=== PATIENT | female | born 1995 | race American Indian/Alaskan Native ===

== ENCOUNTER 2019-12-19 16:44 | Observation (INO) | payer MEDICAID ==
[2019-12-19 17:49] LABS: Bacteria,Urine 4+ /HPF (Negative); Bilirubin,Urine NEG (Negative); Blood,Urine NEG (Negative); Color,Urine Yellow (Yellow); Mucus,Urine 1+ /HPF; Sperm,Urine 1+ /HPF (NP); Urobilinogen,Urine < 2.0 mg/dL (<2.0)
[2019-12-19 17:58] LABS: WBC,Urine > 182.0 /HPF (0.0-6.0)
[2019-12-19] MEDS ORDERED: LACTATED RINGERS 1,000 ML IV SCH (18:00)
[2019-12-19 19:29] LABS: Amphetamine Screen,Urine PRESUMPTIVE NEGATIVE; Benzodiazepines Screen,Urine PRESUMPTIVE NEGATIVE; Cannabinoid Screen,Urine PRESUMPTIVE NEGATIVE; Cocaine Screen,Urine PRESUMPTIVE NEGATIVE; Methadone Screen,Urine PRESUMPTIVE NEGATIVE; Opiate Screen,Urine PRESUMPTIVE NEGATIVE
--- NOTE | 2019-12-19 20:59 | Consultation ---
History of Present Illness Consult date: 12/19/19 History of present illness: 24 y/o today at 36 weeks of , patient of Dr. Sharma at [place], was brought to OB Triage Unit by ambulance due to sudden onset of altered mental state and slurred speech beginning at about 4:30 PM today. Patient has no obstetrical complaints. Normal heart of 140's. Reassuring tracing. 2 CTXs in last 40 minutes. PH: Hx of DVT---currently on Heparin Pt unable to answer questions regarding what year it is, where she is, etc. IMP: Possible CVA PLAN: To ER for evaluation per advise of Hospitalist on-call. Past History - Obstetrical History : 3 Medications and Allergies Allergies Allergy/AdvReac Type Severity Reaction Status Date / Time No Known Allergies Allergy Verified 12/19/19 17:22 Active Meds: Active Medications Lactated Ringer's (Lactated Ringers) 1,000 mls @ 125 mls/hr IV DIRECT MARIAELENA - Vital Signs Vital signs: Vital Signs Pulse Pulse Ox 104 H 100 12/19/19 16:48 12/19/19 16:48 Temp Pulse Resp BP Pulse Ox 97.8 F 114 H 32 H 116/63 99 12/19/19 17:51 12/19/19 20:23 12/19/19 17:51 12/19/19 20:14 12/19/19 20:23 Results Abnormal lab results 12/19/19 Range/Units Unknown Urine WBC (Auto) > 182.0 H (0.0-6.0) /HPF All other labs normal.
--- NOTE | 2019-12-19 21:10 | Emergency Department Report ---
HPI - General Chief Complaint: Altered Mental Status PUI?: No Time Seen by Provider: 12/19/19 20:56 - HPI HPI: This is a 24-year-old -English female, who is currently 36 weeks , who presents to the emergency department from labor and delivery with some slurred speech, headache and some questionable strokelike symptoms. Patient was seen by the SENIOR EDITOR and cleared. Patient complains of a headache to the forehead region that is been going on since this afternoon. The patient significant other at said that the patient began having some slurred speech and confusion around 5 PM. At the time of my examination the patient still complains of a headache and has some slow response to questions asked but otherwise does not have any slurred speech and is oriented to person, place, time. She complains of some bilateral arm numbness or decreased sensation. She denies any facial droop, extremity weakness. Patient has been taking Lovenox regularly secondary to history of previous DVTs. ED Past Medical Hx - Past Medical History Previous Medical History?: Yes Hx Deep Vein Thrombosis: Yes (bilateral lower extremities) - Surgical History Past Surgical History?: No ED Review of Systems ROS: Stated complaint: ABD PAIN Other details as noted in HPI Comment: All other systems reviewed and negative Constitutional: weakness. denies: chills Eyes: denies: eye pain, vision change ENT: denies: ear pain, throat pain Respiratory: denies: cough, shortness of breath Cardiovascular: denies: chest pain, palpitations Gastrointestinal: denies: abdominal pain, vomiting Genitourinary: denies: dysuria, discharge Musculoskeletal: denies: back pain, arthralgia Skin: denies: rash, lesions Neurological: headache, numbness, confusion Physical Exam - Physical Exam Vital Signs: Vital Signs 12/19/19 12/19/19 12/19/19 16:48 16:53 16:58 Temperature Pulse Rate 104 H 100 H 109 H Respiratory Rate Blood Pressure Blood Pressure [Right] O2 Sat by Pulse 100 100 100 Oximetry 12/19/19 12/19/19 12/19/19 16:59 17:03 17:08 Temperature Pulse Rate 114 H 123 H 119 H Respiratory Rate Blood Pressure 107/62 Blood Pressure [Right] O2 Sat by Pulse 100 98 Oximetry 12/19/19 12/19/19 12/19/19 17:13 17:14 17:18 Temperature Pulse Rate 121 H 117 H 123 H Respiratory Rate Blood Pressure 113/70 Blood Pressure [Right] O2 Sat by Pulse 100 100 Oximetry 12/19/19 12/19/19 12/19/19 17:23 17:28 17:31 Temperature Pulse Rate 113 H 111 H 114 H Respiratory Rate Blood Pressure 128/68 Blood Pressure [Right] O2 Sat by Pulse 100 100 86 Oximetry 12/19/19 12/19/19 12/19/19 17:33 17:34 17:38 Temperature Pulse Rate 111 H 111 H 120 H Respiratory Rate Blood Pressure 121/70 Blood Pressure [Right] O2 Sat by Pulse 100 98 Oximetry 12/19/19 12/19/19 12/19/19 17:43 17:45 17:48 Temperature Pulse Rate 128 H 108 H 116 H Respiratory Rate Blood Pressure 121/71 Blood Pressure [Right] O2 Sat by Pulse 100 99 Oximetry 12/19/19 12/19/19 12/19/19 17:51 17:53 17:58 Temperature 97.8 F Pulse Rate 106 H 113 H 119 H Respiratory 32 H Rate Blood Pressure Blood Pressure 115/59 [Right] O2 Sat by Pulse 99 99 98 Oximetry 12/19/19 12/19/19 12/19/19 18:01 18:02 18:03 Temperature Pulse Rate 107 H 108 H 104 H Respiratory Rate Blood Pressure 130/70 Blood Pressure [Right] O2 Sat by Pulse 94 93 Oximetry 12/19/19 12/19/19 12/19/19 18:08 18:12 18:13 Temperature Pulse Rate 103 H 106 H 106 H Respiratory Rate Blood Pressure Blood Pressure [Right] O2 Sat by Pulse 91 93 94 Oximetry 12/19/19 12/19/19 12/19/19 18:14 18:18 18:23 Temperature Pulse Rate 111 H 102 H 119 H Respiratory Rate Blood Pressure 126/69 Blood Pressure [Right] O2 Sat by Pulse 98 100 Oximetry 12/19/19 12/19/19 12/19/19 18:28 18:29 18:33 Temperature Pulse Rate 126 H 107 H 116 H Respiratory Rate Blood Pressure 124/65 Blood Pressure [Right] O2 Sat by Pulse 100 99 Oximetry 12/19/19 12/19/19 12/19/19 18:38 18:43 18:46 Temperature Pulse Rate 112 H 122 H 75 Respiratory Rate Blood Pressure 150/110 Blood Pressure [Right] O2 Sat by Pulse 100 88 Oximetry 12/19/19 12/19/19 12/19/19 18:48 18:53 18:58 Temperature Pulse Rate 123 H 106 H 109 H Respiratory Rate Blood Pressure Blood Pressure [Right] O2 Sat by Pulse 99 100 100 Oximetry 12/19/19 12/19/19 12/19/19 19:00 19:03 19:08 Temperature Pulse Rate 100 H 105 H 102 H Respiratory Rate Blood Pressure 120/71 Blood Pressure [Right] O2 Sat by Pulse 99 99 Oximetry 12/19/19 12/19/19 12/19/19 19:13 19:16 19:18 Temperature Pulse Rate 111 H 116 H 111 H Respiratory Rate Blood Pressure 112/70 Blood Pressure [Right] O2 Sat by Pulse 99 99 Oximetry 12/19/19 12/19/19 12/19/19 19:23 19:28 19:29 Temperature Pulse Rate 117 H 110 H 115 H Respiratory Rate Blood Pressure 106/66 Blood Pressure [Right] O2 Sat by Pulse 98 98 Oximetry 12/19/19 12/19/19 12/19/19 19:33 19:38 19:43 Temperature Pulse Rate 111 H 108 H 105 H Respiratory Rate Blood Pressure Blood Pressure [Right] O2 Sat by Pulse 98 100 100 Oximetry 12/19/19 12/19/19 12/19/19 19:45 19:48 19:53 Temperature Pulse Rate 107 H 115 H 121 H Respiratory Rate Blood Pressure 97/53 Blood Pressure [Right] O2 Sat by Pulse 99 98 Oximetry 12/19/19 12/19/19 12/19/19 19:58 20:01 20:03 Temperature Pulse Rate 118 H 127 H 118 H Respiratory Rate Blood Pressure 116/68 Blood Pressure [Right] O2 Sat by Pulse 99 99 Oximetry 12/19/19 12/19/19 12/19/19 20:08 20:13 20:14 Temperature Pulse Rate 101 H 105 H 104 H Respiratory Rate Blood Pressure 116/63 Blood Pressure [Right] O2 Sat by Pulse 99 99 Oximetry 12/19/19 12/19/19 12/19/19 20:18 20:23 20:57 Temperature 100.7 F H Pulse Rate 111 H 114 H 107 H Respiratory 16 Rate Blood Pressure Blood Pressure 108/64 [Right] O2 Sat by Pulse 98 99 99 Oximetry Physical Exam: GENERAL: The patient is well-developed well-nourished. HENT: Normocephalic. Atraumatic. Patient has moist mucous membranes. EYES: Extraocular motions are intact. Pupils equal reactive to light bilaterally. No nystagmus. NECK: Supple. Trachea is midline. CHEST/LUNGS: Clear to auscultation. There is no respiratory distress noted. HEART/CARDIOVASCULAR: Regular. There is no tachycardia. ABDOMEN: Abdomen is soft, nontender. Patient has normal bowel sounds. SKIN: Skin is warm and dry. NEURO: The patient is awake, alert, and oriented. The patient is cooperative. The patient has no motor or sensory deficits. There is no dysarthria but the patient is slow to respond to questions asked with some mild aphasia. Cranial nerves II through XII grossly intact. No pronator drift or dysmetria. MUSCULOSKELETAL: There is no tenderness or deformity. There is no limitation range of motion. ED Course Vital Signs 12/19/19 12/19/19 12/19/19 16:48 16:53 16:58 Temperature Pulse Rate 104 H 100 H 109 H Respiratory Rate Blood Pressure Blood Pressure [Right] O2 Sat by Pulse 100 100 100 Oximetry 12/19/19 12/19/19 12/19/19 16:59 17:03 17:08 Temperature Pulse Rate 114 H 123 H 119 H Respiratory Rate Blood Pressure 107/62 Blood Pressure [Right] O2 Sat by Pulse 100 98 Oximetry 12/19/19 12/19/19 12/19/19 17:13 17:14 17:18 Temperature Pulse Rate 121 H 117 H 123 H Respiratory Rate Blood Pressure 113/70 Blood Pressure [Right] O2 Sat by Pulse 100 100 Oximetry 12/19/19 12/19/19 12/19/19 17:23 17:28 17:31 Temperature Pulse Rate 113 H 111 H 114 H Respiratory Rate Blood Pressure 128/68 Blood Pressure [Right] O2 Sat by Pulse 100 100 86 Oximetry 12/19/19 12/19/19 12/19/19 17:33 17:34 17:38 Temperature Pulse Rate 111 H 111 H 120 H Respiratory Rate Blood Pressure 121/70 Blood Pressure [Right] O2 Sat by Pulse 100 98 Oximetry 12/19/19 12/19/19 12/19/19 17:43 17:45 17:48 Temperature Pulse Rate 128 H 108 H 116 H Respiratory Rate Blood Pressure 121/71 Blood Pressure [Right] O2 Sat by Pulse 100 99 Oximetry 12/19/19 12/19/19 12/19/19 17:51 17:53 17:58 Temperature 97.8 F Pulse Rate 106 H 113 H 119 H Respiratory 32 H Rate Blood Pressure Blood Pressure 115/59 [Right] O2 Sat by Pulse 99 99 98 Oximetry 12/19/19 12/19/19 12/19/19 18:01 18:02 18:03 Temperature Pulse Rate 107 H 108 H 104 H Respiratory Rate Blood Pressure 130/70 Blood Pressure [Right] O2 Sat by Pulse 94 93 Oximetry 12/19/19 12/19/19 12/19/19 18:08 18:12 18:13 Temperature Pulse Rate 103 H 106 H 106 H Respiratory Rate Blood Pressure Blood Pressure [Right] O2 Sat by Pulse 91 93 94 Oximetry 12/19/19 12/19/19 12/19/19 18:14 18:18 18:23 Temperature Pulse Rate 111 H 102 H 119 H Respiratory Rate Blood Pressure 126/69 Blood Pressure [Right] O2 Sat by Pulse 98 100 Oximetry 12/19/19 12/19/19 12/19/19 18:28 18:29 18:33 Temperature Pulse Rate 126 H 107 H 116 H Respiratory Rate Blood Pressure 124/65 Blood Pressure [Right] O2 Sat by Pulse 100 99 Oximetry 12/19/19 12/19/19 12/19/19 18:38 18:43 18:46 Temperature Pulse Rate 112 H 122 H 75 Respiratory Rate Blood Pressure 150/110 Blood Pressure [Right] O2 Sat by Pulse 100 88 Oximetry 12/19/19 12/19/19 12/19/19 18:48 18:53 18:58 Temperature Pulse Rate 123 H 106 H 109 H Respiratory Rate Blood Pressure Blood Pressure [Right] O2 Sat by Pulse 99 100 100 Oximetry 12/19/19 12/19/19 12/19/19 19:00 19:03 19:08 Temperature Pulse Rate 100 H 105 H 102 H Respiratory Rate Blood Pressure 120/71 Blood Pressure [Right] O2 Sat by Pulse 99 99 Oximetry 12/19/19 12/19/19 12/19/19 19:13 19:16 19:18 Temperature Pulse Rate 111 H 116 H 111 H Respiratory Rate Blood Pressure 112/70 Blood Pressure [Right] O2 Sat by Pulse 99 99 Oximetry 12/19/19 12/19/1912/18/20 19:23 19:28 19:29 Temperature Pulse Rate 117 H 110 H 115 H Respiratory Rate Blood Pressure 106/66 Blood Pressure [Right] O2 Sat by Pulse 98 98 Oximetry 12/19/19 12/19/19 12/19/19 19:33 19:38 19:43 Temperature Pulse Rate 111 H 108 H 105 H Respiratory Rate Blood Pressure Blood Pressure [Right] O2 Sat by Pulse 98 100 100 Oximetry 12/19/19 12/19/19 12/19/19 19:45 19:48 19:53 Temperature Pulse Rate 107 H 115 H 121 H Respiratory Rate Blood Pressure 97/53 Blood Pressure [Right] O2 Sat by Pulse 99 98 Oximetry 12/19/19 12/19/19 12/19/19 19:58 20:01 20:03 Temperature Pulse Rate 118 H 127 H 118 H Respiratory Rate Blood Pressure 116/68 Blood Pressure [Right] O2 Sat by Pulse 99 99 Oximetry 12/19/19 12/19/19 12/19/19 20:08 20:13 20:14 Temperature Pulse Rate 101 H 105 H 104 H Respiratory Rate Blood Pressure 116/63 Blood Pressure [Right] O2 Sat by Pulse 99 99 Oximetry 12/19/19 12/19/19 12/19/19 20:18 20:23 20:57 Temperature 100.7 F H Pulse Rate 111 H 114 H 107 H Respiratory 16 Rate Blood Pressure Blood Pressure 108/64 [Right] O2 Sat by Pulse 98 99 99 Oximetry - Reevaluation(s) Reevaluation #1: 12/20/19 00:21 Lab Results 12/19/19 12/19/19 12/19/19 Range/Units 21:31 21:31 21:31 WBC 8.9 (4.5-11.0) K/mm3 RBC 3.84 (3.65-5.03) M/mm3 Hgb 10.6 (10.1-14.3) gm/dl Hct 31.9 (30.3-42.9) % MCV 83 (79-97) fl MCH 28 (28-32) pg MCHC 33 (30-34) % RDW 19.2 H (13.2-15.2) % Plt Count 434 (140-440) K/mm3 Lymph % (Auto) 14.5 (13.4-35.0) % [place] % (Auto) 8.6 H (0.0-7.3) % Eos % (Auto) 0.0 (0.0-4.3) % Baso % (Auto) 0.2 (0.0-1.8) % Lymph # 1.3 (1.2-5.4) K/mm3 [place] # 0.8 (0.0-0.8) K/mm3 Eos # 0.0 (0.0-0.4) K/mm3 Baso # 0.0 (0.0-0.1) K/mm3 Seg Neutrophils % 76.7 H (40.0-70.0) % Seg Neutrophils # 6.9 (1.8-7.7) K/mm3 PT 15.0 H (12.2-14.9) Sec. INR 1.16 H (0.87-1.13) APTT 34.1 (24.2-36.6) Sec. Sodium (137-145) mmol/L Potassium (3.6-5.0) mmol/L Chloride (98-107) mmol/L Carbon Dioxide (22-30) mmol/L Anion Gap mmol/L BUN (7-17) mg/dL Creatinine (0.6-1.2) mg/dL Estimated GFR ml/min BUN/Creatinine Ratio % Glucose (65-100) mg/dL Calcium (8.4-10.2) mg/dL Total Bilirubin (0.1-1.2) mg/dL AST (5-40) units/L ALT (7-56) units/L Alkaline Phosphatase (35-129) units/L Total Creatine Kinase 67 (30-135) units/L CK-MB (CK-2) 1.4 (0.0-4.0) ng/mL CK-MB (CK-2) Rel Index 2.0 (0-4) Troponin T < 0.010 (0.00-0.029) ng/mL Total Protein (6.3-8.2) g/dL Albumin (3.9-5) g/dL Albumin/Globulin Ratio % Blood Type Antibody Screen 12/19/19 12/19/19 Range/Units 21:31 21:31 WBC (4.5-11.0) K/mm3 RBC (3.65-5.03) M/mm3 Hgb (10.1-14.3) gm/dl Hct (30.3-42.9) % MCV (79-97) fl MCH (28-32) pg MCHC (30-34) % RDW (13.2-15.2) % Plt Count (140-440) K/mm3 Lymph % (Auto) (13.4-35.0) % [place] % (Auto) (0.0-7.3) % Eos % (Auto) (0.0-4.3) % Baso % (Auto) (0.0-1.8) % Lymph # (1.2-5.4) K/mm3 [place] # (0.0-0.8) K/mm3 Eos # (0.0-0.4) K/mm3 Baso # (0.0-0.1) K/mm3 Seg Neutrophils % (40.0-70.0) % Seg Neutrophils # (1.8-7.7) K/mm3 PT (12.2-14.9) Sec. INR (0.87-1.13) APTT (24.2-36.6) Sec. Sodium 136 L (137-145) mmol/L Potassium 4.4 (3.6-5.0) mmol/L Chloride 103.3 (98-107) mmol/L Carbon Dioxide 17 L (22-30) mmol/L Anion Gap 20 mmol/L BUN 13 (7-17) mg/dL Creatinine 1.1 (0.6-1.2) mg/dL Estimated GFR > 60 ml/min BUN/Creatinine Ratio 12 % Glucose 110 H (65-100) mg/dL Calcium 9.1 (8.4-10.2) mg/dL Total Bilirubin 0.20 (0.1-1.2) mg/dL AST 10 (5-40) units/L ALT 7 (7-56) units/L Alkaline Phosphatase 111 (35-129) units/L Total Creatine Kinase (30-135) units/L CK-MB (CK-2) (0.0-4.0) ng/mL CK-MB (CK-2) Rel Index (0-4) Troponin T (0.00-0.029) ng/mL Total Protein 6.7 (6.3-8.2) g/dL Albumin 2.8 L (3.9-5) g/dL Albumin/Globulin Ratio 0.7 % Blood Type O POSITIVE Antibody Screen Negative - Consultations Consultation #1: 12/19/19 21:17 The patient was seen by the telemedicine neurologist, Dr. Bertrand, who feels the patient is having aphasia and is recommending CT angiography of the head and neck studies. ED Medical Decision Making - Lab Data Result diagrams: 12/19/19 21:31 12/19/19 21:31 - Radiology Data Radiology results: report reviewed CT BRAIN: 12/19/2019 INDICATION / CLINICAL INFORMATION: Stroke symptoms. COMPARISON: None available. FINDINGS: BRAIN/INTRACRANIAL STRUCTURES: Unenhanced CT images of the brain demonstrate no evidence of acute intracranial abnormality. Ventricles and sulci are normal in size and shape. There is no evidence of acute ischemic injury, hemorrhage, or mass. There are no abnormal extra-axial fluid collections. EXTRACRANIAL STRUCTURES: Unremarkable. IMPRESSION: Negative unenhanced CT of the brain. HEAD CT ANGIOGRAM 12/19/2019 HISTORY: CVA FINDINGS: Contrast-enhanced CT angiographic images of the intracranial circulation were obtained. In addition to the axial images, sagittal and coronal reformatted images were obtained. In addition, 3 plane MIP reconstructions were produced. There is no evidence of acute abnormality. Vascular contours at the level of the skull base and [place] are unremarkable. There is a normal appearance to the major dural sinuses and deep venous structures. IMPRESSION: No significant abnormality CTA NECK WITH CONTRAST 12/19/2019 INDICATION / CLINICAL INFORMATION: CVA. COMPARISON: None. TECHNIQUE: Routine CTA of the neck is performed. 3-D/MIP reformats were postprocessed. Percentage stenosis is determined by direct quantitative measurements of diseased internal carotid artery diameter compared with normal distal internal carotid artery reference segments or by criteria similar to NASCET where applicable. All CT scans at this location are performed using CT dose reduction for ALARA by means of automated exposure control. CONTRAST: 100 ml of Isovue 370 FINDINGS: Carotid bifurcations: No evidence of carotid bifurcation stenosis Carotid arteries: No significant abnormality. Cervical vertebral arteries: No significant abnormality. Aortic arch: No significant abnormality. None. IMPRESSION: No significant abnormality. - Medical Decision Making This patient presents to the emergency department with a complaint of some slurred speech earlier in the afternoon and altered mental status. The patient does complain of a headache. She does not have any slurred speech at the time of my initial examination but is very slow to respond to questions asked and had difficulty with the orientation question of where she is. A code stroke was initiated and the patient was seen by the telemedicine neurologist, Dr Bertrand, during her initial ED course as she went to CT scan. CT of the head without contrast was negative for any hemorrhage, large territorial infarct or any other acute process. The neurologist called me and recommended CT angiography studies of the head and neck. The neurologist was aware that the patient is 36 weeks . The risks versus benefits of the studies were discussed with the patient who is in full agreement to have the CT studies completed including the angiography studies, and the patient has signed the permission forms. CT angiography of the head and neck were negative for any large vessel occlusion, thrombus, or any other acute processes. The patient's labs have been mostly unremarkable except for a urinary tract infection for which the patient has been given Rocephin. The patient will be admitted to the hospital for further evaluation and treatment and has been accepted for admission by the hospitalist, Dr. Garcia. Critical Care Time: Yes Critical care time in (mins) excluding proc time.: 35 Critical care attestation.: If time is entered above; I have spent that time in minutes in the direct care of this critically ill patient, excluding procedure time. Critical care time was spent on this patient in doing her initial evaluation, multiple re- evaluations, ordering and interpretation of labs and imaging, discussion with the telemedicine neurologist and hospitalist services, multiple discussions with the patient herself. Critical Care Time: 35 minutes ED Disposition Clinical Impression: Stroke-like symptoms Altered mental status Qualifiers: Altered mental status type: unspecified Qualified Code(s): R41.82 - Altered mental status, unspecified UTI (urinary tract infection) Qualifiers: Urinary tract infection type: acute cystitis Hematuria presence: without hematuria Qualified Code(s): N30.00 - Acute cystitis without hematuria Qualifiers: Weeks of gestation: 36 weeks Qualified Code(s): Z3A.36 - 36 weeks gestation of Disposition: OP ADMIT IP TO THIS HOSP Is pt being admited?: Yes Condition: Serious Time of Disposition: 22:32 - Assessment Assessment Interval: Baseline - Level of Consciousness 1a. Level of Consciousness: alert/keenly responsive - LOC Questions 1b. LOC Questions: answers both correctly - LOC Command 1c. LOC Commands: performs tasks correctly - Best Gaze 2. Best Gaze: normal - Visual 3. Visual: no visual loss - Facial Palsy 4. Facial Palsy: normal symmetrical movement - Motor Arm 5a. Motor Arm Left: no drift 5b. Motor Arm Right: no drift - Motor Leg 6a. Motor Leg Left: no drift 6b. Motor Leg Right: no drift - Limb Ataxia 7. Limb Ataxia: absent - Sensory 8. Sensory: normal - Best Language 9. Best Language: mild/moderate aphasia - Dysarthria 10. Dysarthria: normal - Extinction and Inattention 11. Extinction/Inattention: no abnormality - Scoring Total Score: 1 Stroke Severity: Minor Stroke
--- NOTE | 2019-12-19 21:29 | Cat Scan Report ---
CT BRAIN: 12/19/2019 INDICATION / CLINICAL INFORMATION: Stroke symptoms. COMPARISON: None available. FINDINGS: BRAIN/INTRACRANIAL STRUCTURES: Unenhanced CT images of the brain demonstrate no evidence of acute int racranial abnormality. Ventricles and sulci are normal in size and shape. There is no evidence of acute ischemic injury, hemorrhage, or mass. There are no abnormal extra-axial fluid collections. EXTRACRANIAL STRUCTURES: Unremarkable. IMPRESSION: Negative unenhanced CT of the brain. Findings were discussed with emergency room (Dr. Murillo) physician at 2123h ET All CT scans at this location are performed using dose reduction to ALARA by means of automated expos ure control. Signer Name: Kadeem Mcdaniel MD Signed: 12/19/2019 9:24 PM Workstation Name: [id number]
[2019-12-19 21:44] LABS: Basophils % (Auto) 0.2 % (0.0-1.8); Hematocrit 31.9 % (30.3-42.9); Hemoglobin 10.6 gm/dl (10.1-14.3); Lymphocytes # (Auto) 1.3 K/mm3 (1.2-5.4); Lymphocytes % (Auto) 14.5 % (13.4-35.0); Mean Corpuscular HGB Conc 33 % (30-34); Mean Corpuscular Volume 83 fl (79-97); Monocytes # (Auto) 0.8 K/mm3 (0.0-0.8); Monocytes % (Auto) 8.6 % (0.0-7.3); Platelet Count 434 K/mm3 (140-440); Red Blood Count 3.84 M/mm3 (3.65-5.03); Red Cell Distribution Width 19.2 % (13.2-15.2)
--- NOTE | 2019-12-19 21:51 | Cat Scan Report ---
CTA NECK WITH CONTRAST 12/19/2019 INDICATION / CLINICAL INFORMATION: CVA. COMPARISON: None. TECHNIQUE: Routine CTA of the neck is performed. 3-D/MIP reformats were postprocessed. Percentage st enosis is determined by direct quantitative measurements of diseased internal carotid artery diameter compared with normal distal internal carotid artery reference segments or by criteria similar to [place] CET where applicable. All CT scans at this location are performed using CT dose reduction for ALARA b y means of automated exposure control. CONTRAST: 100 ml of Isovue 370 FINDINGS: Carotid bifurcations: No evidence of carotid bifurcation stenosis Carotid arteries: No significant abnormality. Cervical vertebral arteries: No significant abnormality. Aortic arch: No significant abnormality. None. IMPRESSION: No significant abnormality. Signer Name: Kadeem Mcdaniel MD Signed: 12/19/2019 9:46 PM Workstation Name: [id number]
--- NOTE | 2019-12-19 21:55 | Cat Scan Report ---
HEAD CT ANGIOGRAM 12/19/2019 HISTORY: CVA FINDINGS: Contrast-enhanced CT angiographic images of the intracranial circulation were obtained. In addition to the axial images, sagittal and coronal reformatted images were obtained. In addition, 3 p kristie MIP reconstructions were produced. There is no evidence of acute abnormality. Vascular contours at the level of the skull base and [place] are unremarkable. There is a normal appearance to the major dural sinuses and deep venous structures. IMPRESSION: No significant abnormality All CT scans at this location are performed using dose reduction to ALARA by means of automated expos ure control. Signer Name: Kadeem Mcdaniel MD Signed: 12/19/2019 9:50 PM Workstation Name: [id number]
[2019-12-19 22:00] LABS: INR 1.16 (0.87-1.13)
[2019-12-19 22:01] LABS: Creatine Kinase MB 1.4 ng/mL (0.0-4.0); Partial Thromboplastin Time 34.1 Sec. (24.2-36.6)
[2019-12-19] MEDS ORDERED: cefTRIAXone/NS 1 GM/50 ML 1 GM/50 ML BAG IV ONE ×2 (22:01→22:24)
[2019-12-19 22:02] LABS: Alanine Aminotransferase 7 units/L (7-56); Albumin 2.8 g/dL (3.9-5); BUN/Creatinine Ratio 12; Blood Urea Nitrogen 13 mg/dL (7-17); Calcium 9.1 mg/dL (8.4-10.2); Hemolysis Index 0
[2019-12-19] MEDS ORDERED: ACETAMINOPHEN 325 MG TAB PO ONE (22:03)
[2019-12-19] MEDS ORDERED: ACETAMINOPHEN 325 MG TAB ONE (22:24)
--- NOTE | 2019-12-20 00:27 | Consultation ---
History of Present Illness Consult date: 12/20/19 Reason for Consult: [employer] Medications and Allergies Allergies Allergy/AdvReac Type Severity Reaction Status Date / Time No Known Allergies Allergy Verified 12/19/19 17:22 Active Meds: Active Medications Ceftriaxone Sodium (Rocephin/Ns 1 Gm/50 Ml) 1 gm in 50 mls @ 100 mls/hr IV Q24HR MARIAELENA; Protocol Physical Examination - Vital Signs Vital Signs: Vital Signs Pulse Pulse Ox 104 H 100 12/19/19 16:48 12/19/19 16:48 Results - Laboratory Findings CBC and BMP: 12/19/19 21:31 12/19/19 21:31 Abnormal Lab Findings: Abnormal Labs 12/19/19 12/19/19 12/19/19 21:31 21:31 21:31 RDW 19.2 H [place] % (Auto) 8.6 H Seg Neutrophils % 76.7 H PT 15.0 H INR 1.16 H Sodium 136 L Carbon Dioxide 17 L Glucose 110 H Albumin 2.8 L Urine WBC (Auto) 12/19/19 Unknown RDW [place] % (Auto) Seg Neutrophils % PT INR Sodium Carbon Dioxide Glucose Albumin Urine WBC (Auto) > 182.0 H
--- NOTE | 2019-12-20 05:22 | Ultrasound Report ---
Examination: Ultrasound Obstetrical Limited, 12/20/2019 INDICATION: Evaluate well being. COMPARISON: None FINDINGS: There is a single living intrauterine with the head in the cephalic position. Amniotic flui d index measures 6.3 cm, which is slightly decreased. The heart rate measures 129 bpm. Incidental note is made of mild right-sided hydronephrosis. The utility aircrewman performing the evaluation also tried to evaluate the maternal left kidney but it was not visualized. 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 IMPRESSION: 1. Limited obstetrical ultrasound with details as above. The BOY is slightly decreased. 2. Mild right hydronephrosis. Signer Name: Casie Xavier MD Signed: 12/20/2019 5:18 AM Workstation Name: [id number]
--- NOTE | 2019-12-20 05:23 | Ultrasound Report ---
ULTRASOUND BIOPHYSICAL PROFILE INDICATION / CLINICAL INFORMATION: Evaluate well-being COMPARISON: None FINDINGS: BREATHING MOVEMENT = 2 GROSS BODY MOVEMENT = 2 TONE = 2 QUALITATIVE AMNIOTIC FLUID VOLUME = 2 TOTAL BIOPHYSICAL SCORE = 8/8 AMNIOTIC FLUID INDEX (cm) = 6.3 PRESENTATION: Cephalic. HEART RATE (beats per minute): 129 IMPRESSION: 1. biophysical profile = 8/8 2. BOY is noted to be slightly decreased. Signer Name: Casie Xavier MD Signed: 12/20/2019 5:18 AM Workstation Name: [id number]
--- NOTE | 2019-12-20 06:11 | History and Physical Report ---
History of Present Illness Date of examination: 12/19/19 Date of admission: 12/19/19 22:32 Chief complaint: SPEECH DISTURBANCE AND ALTERED MENTAL STATUS History of present illness: History of presenting illness, patient is a 24-year-old lady, who was brought from the labor and delivery to the emergency room because of difficulty with speech, altered mental status, numbness of both upper extremity and weakness of the right upper extremity. Patient symptoms started some hours prior to presentation to the emergency room, there was history of associated headache but there was no history of fever, shortness of breath, chest pain, or cough Past History Past Medical History: DVT Medications and Allergies Allergies Allergy/AdvReac Type Severity Reaction Status Date / Time No Known Allergies Allergy Verified 12/19/19 17:22 Active Meds: Active Medications Ceftriaxone Sodium (Rocephin/Ns 1 Gm/50 Ml) 1 gm in 50 mls @ 100 mls/hr IV Q24H R MARIAELENA; Protocol Review of Systems Constitutional: weakness, no weight loss, no weight gain, no fever, no chills, no sweats, no night sweats, no anorexia, no fatigue, no malaise Eyes: bilateral: other (NO BILATERAL EYE SYMPTOMS ) Ears, nose, mouth and throat: no ear pain, no ear discharge, no nose pain, no n heidi congestion, no nasal discharge, no sinus pressure, no dysphagia, no hoarseness, no sore throat Breasts: deferred Cardiovascular: no chest pain, no orthopnea, no rapid/irregular heart beat, no syncope, no lightheadedness, no shortness of breath Respiratory: no cough, no excessive sputum, no hemoptysis, no shortness of b reath, no dyspnea on exertion Gastrointestinal: no abdominal pain, no nausea, no vomiting, no diarrhea, no constipation, no hematemesis, no melena, no hematochezia, no heartburn, no jaundice, no dyspepsia/bloating Genitourinary Female: , no pelvic pain, no flank pain, no menorrhagia Menstruation: no currently menstrual, no postmenopausal Rectal: no pain, no itching Musculoskeletal: neck stiffness, neck pain Integumentary: no rash, no pruritis, no redness, no sores, no jaundice, no lesions, no hirsutism Neurological: headaches, change in speech, change in mentation, no head injury, no paralysis, no weakness, no parathesias, no numbness, no tingling, no seizures, no syncope, no convulsions, no confusion, no memory loss Psychiatric: no anxiety, no memory loss, no insomnia, no depression, no anxiety attacks, no confusion Endocrine: no cold intolerance, no heat intolerance, no polydipsia, no polyuria, no nocturia, no thyroid mass, no palpatations Hematologic/Lymphatic: no easy bruising, no easy bleeding Allergic/Immunologic: no persistent infections Exam - Constitutional Vitals: Temp Pulse Resp BP Pulse Ox 98.6 F 97 H 20 103/43 99 12/20/19 03:28 12/20/19 03:28 12/20/19 03:28 12/20/19 03:28 12/20/19 03:28 General appearance: Present: mild distress - EENT Eyes: Present: PERRL, EOM intact ENT: hearing intact, clear oral mucosa, dentition normal - Neck Neck: Present: supple, normal ROM - Respiratory Respiratory effort: normal - Cardiovascular Rhythm: regular Heart Sounds: Present: S1 & S2. Absent: gallop, systolic murmur, diastolic murmur - Extremities Extremities: no ischemia, No edema Peripheral Pulses: within normal limits - Abdominal General gastrointestinal: Present: soft, non-tender, non-distended. Absent: tender, distended, rigid, hepatomegaly, splenomegaly, mass Female genitourinary: Present: deferred - Rectal Rectal Exam: deferred - Integumentary Integumentary: Present: clear, warm, dry - Musculoskeletal Musculoskeletal: strength equal bilaterally - Psychiatric Psychiatric: appropriate mood/affect - Neurologic Neurologic: CNII-XII intact HEART Score - HEART Score Age: < 45 Risk factors: No known risk factors Troponin: Troponin T < 0.010 ng/mL (0.00-0.029) 12/19/19 21:31 Troponin: < normal limit - Critical Actions Critical Actions: 0-3 pts:0.9-1.7%risk of adverse cardiac event.Candidate for discharge Results - Labs CBC & Chem 7: 12/19/19 21:31 12/19/19 21:31 Labs: Laboratory Last Values WBC 8.9 K/mm3 (4.5-11.0) 12/19/19 21:31 RBC 3.84 M/mm3 (3.65-5.03) 12/19/19 21: Hgb 10.6 gm/dl (10.1-14.3) 12/19/19 21: Hct 31.9 % (30.3-42.9) 12/19/19 21: MCV 83 fl (79-97) 12/19/19 21: MCH 28 pg (28-32) 12/19/19 21: MCHC 33 % (30-34) 12/19/19 21: RDW 19.2 % (13.2-15.2) H 12/19/19 21: Plt Count 434 K/mm3 (140-440) 12/19/19 21: Lymph % (Auto) 14.5 % (13.4-35.0) 12/19/19 21: [place] % (Auto) 8.6 % (0.0-7.3) H 12/19/19 21: Eos % (Auto) 0.0 % (0.0-4.3) 12/19/19 21: Baso % (Auto) 0.2 % (0.0-1.8) 12/19/19 21: Lymph # 1.3 K/mm3 (1.2-5.4) 12/19/19 21: [place] # 0.8 K/mm3 (0.0-0.8) 12/19/19 21: Eos # 0.0 K/mm3 (0.0-0.4) 12/19/19 21: Baso # 0.0 K/mm3 (0.0-0.1) 12/19/19 21: Seg Neutrophils % 76.7 % (40.0-70.0) H 12/19/19 21: Seg Neutrophils # 6.9 K/mm3 (1.8-7.7) 12/19/19: PT 15.0 Sec. (12.2-14.9) H 12/19/19 21: INR 1.16 (0.87-1.13) H 12/19/19 21: APTT 34.1 Sec. (24.2-36.6) 12/19/19 21: Sodium 136 mmol/L (137-145) L 12/19/19 21: Potassium 4.4 mmol/L (3.6-5.0) 12/19/19 21: Chloride 103.3 mmol/L (98-107) 12/19/19 21: Carbon Dioxide 17 mmol/L (22-30) L 12/19/19 21: Anion Gap 20 mmol/L 12/19/19 21: BUN 13 mg/dL (7-17) 12/19/19 21: Creatinine 1.1 mg/dL (0.6-1.2) 12/19/19 21: Estimated GFR > 60 ml/min 12/19/19 21: BUN/Creatinine Ratio 12 % 12/19/19 21: Glucose 110 mg/dL (65-100) H 12/19/19 21: Calcium 9.1 mg/dL (8.4-10.2) 12/19/19 21: Total Bilirubin 0.20 mg/dL (0.1-1.2) 12/19/19 21: AST 10 units/L (5-40) 12/19/19 21: ALT 7 units/L (7-56) 12/19/19 21: Alkaline Phosphatase 111 units/L (35-129) 12/19/19 21: Total Creatine Kinase 67 units/L (30-135) 12/19/19 21: CK-MB (CK-2) 1.4 ng/mL (0.0-4.0) 12/19/19 21: CK-MB (CK-2) Rel Index 2.0 (0-4) 12/19/19 21: Troponin T < 0.010 ng/mL (0.00-0.029) 12/19/19 21: Total Protein 6.7 g/dL (6.3-8.2) 12/19/19 21: Albumin 2.8 g/dL (3.9-5) L 12/19/19 21: Albumin/Globulin Ratio 0.7 % 12/19/19 21: Urine Color Yellow (Yellow) 12/19/19 Unknown Urine Turbidity Turbid (Clear) 12/19/19 Unknown Urine pH 6.0 (5.0-7.0) 12/19/19 Unknown Ur Specific [place] 1.015 (1.003-1.030) 12/19/19 Unknown Urine Protein 30 mg/dl mg/dL (Negative) 12/19/19 Unknown Urine Glucose (UA) Neg mg/dL (Negative) 12/19/19 Unknown Urine Ketones 20 mg/dL (Negative) 12/19/19 Unknown Urine Blood Neg (Negative) 12/19/19 Unknown Urine Nitrite Neg (Negative) 12/19/19 Unknown Urine Bilirubin Neg (Negative) 12/19/19 Unknown Urine Urobilinogen < 2.0 mg/dL (<2.0) 12/19/19 Unknown Ur Leukocyte Esterase Lg (Negative) 12/19/19 Unknown Urine WBC (Auto) > 182.0 /HPF (0.0-6.0) H 12/19/19 Unknown Urine RBC (Auto) 40.0 /HPF (0.0-6.0) 12/19/19 Unknown U Epithel Cells (Auto) 13.0 /HPF (0-13.0) 12/19/19 Unknown Urine Bacteria (Auto) 4+ /HPF (Negative) 12/19/19 Unknown Urine WBC Clumps 3+ /HPF 12/19/19 Unknown Urine Mucus 1+ /HPF 12/19/19 Unknown Urine Yeast (Budding) 3+ /HPF 12/19/19 Unknown Urine Sperm 1+ /HPF (BINDERY LIBRARY TECHNICAL ASSISTANT) 12/19/19 Unknown Urine Opiates Screen Presumptive negative 12/19/19 Unknown Urine Methadone Screen Presumptive negative 12/19/19 Unknown Ur Barbiturates Screen Presumptive negative 12/19/19 Unknown Ur Phencyclidine Scrn Presumptive negative 12/19/19 Unknown Ur Amphetamines Screen Presumptive negative 12/19/19 Unknown U Benzodiazepines Scrn Presumptive negative 12/19/19 Unknown Urine Cocaine Screen Presumptive negative 12/19/19 Unknown U Marijuana (THC) Screen Presumptive negative 12/19/19 Unknown Drugs of Abuse Note Disclamer 12/19/19 Unknown Blood Type O POSITIVE 12/19/19 21:31 Antibody Screen Negative 12/19/19 21:31 Assessment and Plan - Patient Problems (1) Current Visit: Yes Status: Acute Plan to address problem: OBSTETRICAL CONSULT (2) Stroke-like symptoms Current Visit: Yes Status: Acute Plan to address problem: 1.MRI BRAIN WITHOUT CONTRAST 2. BILATERAL CAROTID DOPPLER ULTASOUND 2 D ECHOCARDIOGRAM 4. NEUROLOGY CONSULT 5. SPEECH THERAPY CONSULT 6. NPO UNTIL SWALLOW TEST PASSED (3) UTI (urinary tract infection) Current Visit: Yes Status: Acute Plan to address problem: 1 I.V ROCEPHIN ANTIBIOTIC
[2019-12-20] MEDS: cefTRIAXone/NS 1 GM/50 ML 1 GM/50 ML BAG IV SCH (09:21)
--- NOTE | 2019-12-20 09:38 | Consultation ---
History of Present Illness Consult date: 12/20/19 Reason for consult: other (altered mental state) History of present illness: 24 yo at 36 weeks with [facility] with Dr Hernández at [place] presents with altered mental state. Admitted to hospitalists and on telemetry. Imaging thus far unmarkable patient without complaints today. Denies labor complaints or PIH symptoms. Alert and oriented x 3. Past History - Obstetrical History : 3 Medications and Allergies Allergies Allergy/AdvReac Type Severity Reaction Status Date / Time No Known Allergies Allergy Verified 12/19/19 17:22 Active Meds: Active Medications Ceftriaxone Sodium (Rocephin/Ns 1 Gm/50 Ml) 1 gm in 50 mls @ 100 mls/hr IV Q24HR [facility]; Protocol Last Admin: 12/20/19 09:21 Dose: 100 mls/hr Documented by: - Vital Signs Vital signs: Vital Signs Pulse Pulse Ox 104 H 100 12/19/19 16:48 12/19/19 16:48 Temp Pulse Resp BP Pulse Ox 98.9 F 97 H 18 135/57 99 12/20/19 08:15 12/20/19 03:28 12/20/19 08:15 12/20/19 08:15 12/20/19 03:28 - Physical Exam Abdomen: Positive: normal appearance, other (gravid) Results Result Diagrams: 12/19/19 21:31 12/19/19 21:31 Abnormal lab results 12/19/19 12/19/19 12/19/19 Range/Units 21:31 21:31 21:31 RDW 19.2 H (13.2-15.2) % [place] % (Auto) 8.6 H (0.0-7.3) % Seg Neutrophils % 76.7 H (40.0-70.0) % PT 15.0 H (12.2-14.9) Sec. INR 1.16 H (0.87-1.13) Sodium 136 L (137-145) mmol/L Carbon Dioxide 17 L (22-30) mmol/L Glucose 110 H (65-100) mg/dL Albumin 2.8 L (3.9-5) g/dL Urine WBC (Auto) (0.0-6.0) /HPF 12/19/19 Range/Units Unknown RDW (13.2-15.2) % [place] % (Auto) (0.0-7.3) % Seg Neutrophils % (40.0-70.0) % PT (12.2-14.9) Sec. INR (0.87-1.13) Sodium (137-145) mmol/L Carbon Dioxide (22-30) mmol/L Glucose (65-100) mg/dL Albumin (3.9-5) g/dL Urine WBC (Auto) > 182.0 H (0.0-6.0) /HPF All other labs normal. Assessment and Plan - Patient Problems (1) Current Visit: Yes Status: Acute Plan to address problem: --Care per primary team --No current concerns regarding . No hindrance to medical care. Imaging/labs prn --When complete with assessment and dispo for home and call labor and delivery to set up limited monitoring prior to complete discharge home.
--- NOTE | 2019-12-20 12:14 | Magnetic Resonance Report ---
MRI BRAIN WITHOUT CONTRAST INDICATION / CLINICAL INFORMATION: Stroke like symptoms. Slurred speech and upper extremity weakness. TECHNIQUE: Multiplanar, multisequence MR images of the brain were obtained. COMPARISON: CT head 12/19/2019 FINDINGS: BRAIN / INTRACRANIAL CONTENTS: Ventricles and cortical sulci are normal in size and configuration. Th ere is no mass effect. No evidence of intracranial hemorrhage or extra-axial fluid collection is seen . No significant areas of abnormal brain parenchymal signal intensity are identified. There is no ind ication of remote cortical infarction. Diffusion weighted scans are negative. There is no indication of acute ischemic injury. The brainstem and cerebellum have an unremarkable appearance. MIDLINE STRUCTURES: The pituitary gland is enlarged. There is suprasellar extension of the enlarged p ituitary gland. The gland has a common effects superior margin. This does not compress the optic kaveh sm. Possibility of pituitary hyperplasia should be considered. Follow-up with MRI pituitary gland wit hout and with intravenous contrast is suggested. No abnormalities are seen in the pineal region. CRANIOCERVICAL JUNCTION: No abnormalities are identified at the craniocervical junction. VASCULAR FLOW-VOIDS: Normal flow-voids are present within the major intracranial vessels. ORBITS: The orbits have an unremarkable appearance. SINUSES / MASTOIDS: There is no indication of inflammatory disease in the paranasal sinuses or mastoi d air cells. IMPRESSION: 1. Pituitary gland is enlarged. This may be due to pituitary hyperplasia. Further evaluation with MRI pituitary gland to be performed without and with intravenous contrast is suggested. Laboratory evalu ation for endocrine function is also suggested. Signer Name: John Hodges MD Signed: 12/20/2019 12:10 PM Workstation Name: [id number]
--- NOTE | 2019-12-20 13:01 | Vascular Lab Report ---
"DUPLEX DOPPLER ULTRASOUND CAROTID, BILATERAL INDICATION: STROKE LIKE SYMPTOMS. FINDINGS: RIGHT CAROTID: No significant atherosclerotic plaque. Right ICA peak systolic velocity: 85 cm/sec. Right Vertebral Artery: Antegrade flow. LEFT CAROTID: No significant atherosclerotic plaque. Left ICA peak systolic velocity: 113 cm/sec. Left Vertebral Artery: Antegrade flow. IMPRESSION: 1. Right Internal Carotid Artery: Less than 50% diameter stenosis. 2. Left Internal Carotid Artery: Less than 50% diameter stenosis. Velocity criteria are extrapolated from diameter data as defined by the Society of Radiologists in Ul trasound Consensus Conference, Radiology 2003; 229;340-346. Degree of Stenosis (%) || ICA PSV (cm/sec) || Plaque estimate (%) || ICA/CCA PSV Ratio Normal <125 None <2.0 <50 <125 <50 <2.0 50-69 125-230 50 2.0-4.0 70 but less than 100 >230 50 >4.0 Near occlusion High, low, or none visible variable Total occlusion None visible; no lumen N/A Signer Name: Onesimo Barber MD Signed: 12/20/2019 12:56 PM Workstation Name: [id number]"
--- NOTE | 2019-12-20 13:50 | Discharge Summary ---
Providers - Providers Date of Admission: 12/19/19 22:32 Attending physician: ZEKE CARRILLO MD 12/20/19 06:00 Consult to Physician [CONS] Routine Comment: Consulting Provider: EVARISTO PAZ Physician Instructions: Reason For Exam: STROKE LIKE SYMPTOMS WITH SPEECH IMPAIRMENT Speech Therapy Evaluation and Treat [CONS] Routine Reason For Exam: SPPECH IMPAIRMENT Primary care physician: VIKKI AARON Hospitalization Reason for admission: Altered mental status Condition: Serious Hospital course: patient is a 24-year-old lady, who was brought from the labor and delivery to the emergency room because of difficulty with speech, altered mental status, numbness of both upper extremity and weakness of the right upper extremity. Patient symptoms started some hours prior to presentation to the emergency room, there was history of associated headache but there was no history of fever, shortness of breath, chest pain, or cough Patient was triaged and admitted to the hospitalist service for possible CVA. Imaging studies of the brain was unremarkable for acute stroke except for noted pituitary enlargement. Outpatient follow-up studies recommended for the patient. With CT contrast dedicated pituitary study. She however was noted to have a UTI and will be started on empiric antibiotic and discharged home to follow-up with her CHEMICAL LABORATORY TECHNICIAN. Nursing staff will contact CHEMICAL LABORATORY TECHNICIAN for clearance for discharge per their documentation. (1) Acute Cystitis (2) Acute metabolic Encephalopathy (3) Generalied weakness ( 4) 36 weeks IUP (5) enlarged pituitary gland Disposition: - TO HOME OR SELFCARE Time spent for discharge: 35 mins Core Measure Documentation - Palliative Care Palliative Care/ Comfort Measures: Not Applicable - Core Measures Any of the following diagnoses?: none Exam - Physical Exam Narrative exam: VITAL SIGNS: Reviewed. GENERAL: The patient appears normally developed, Vital signs as documented. HEAD: No signs of head trauma. EYES: Pupils are equal. Extraocular motions intact. EARS: Hearing grossly intact. MOUTH: Oropharynx is normal. NECK: No adenopathy, no JVD. CHEST: Chest with clear breath sounds bilaterally. No wheezes, rales, or rhonchi. CARDIAC: Regular rate and rhythm. S1 and S2, without murmurs, gallops, or rubs. VASCULAR: No Edema. Peripheral pulses normal and equal in all extremities. ABDOMEN: Soft, gravidnon tender and non distended. No rebound or guarding, and no masses palpated. Bowel Sounds normal. MUSCULOSKELETAL: Good range of motion of all major joints. Extremities without clubbing, cyanosis or edema. NEUROLOGIC EXAM: Alert and oriented x 3 No focal sensory or strength deficits. Speech normal. Follows commands. PSYCHIATRIC: Mood normal. SKIN: detail exam as documented in skin assessment - Constitutional Vitals: Temp Pulse Resp BP Pulse Ox 98.9 F 97 H 18 135/57 99 12/20/19 08:15 12/20/19 03:28 12/20/19 08:15 12/20/19 08:15 12/20/19 03:28 Plan Activity: advance as tolerated, fall precautions Diet: low fat Special Instructions: record daily weights, record daily BP diary Care Plan Goals: Patient transferred to ED. Unable to sign, altered mentation. Suspected stroke. ED grave digger accepted report and patient. Follow up with: VIKKI AARON MD [Primary Care Provider] - 7 Days TAVARES WINSTON JR, MD [Staff Physician] - 7 Days
--- NOTE | 2019-12-20 18:11 | Ultrasound Report ---
ULTRASOUND OBSTETRIC LIMITED INDICATION / CLINICAL INFORMATION: heart tones. TECHNIQUE: Transabdominal ultrasound imaging. COMPARISON: Exam from earlier today. FINDINGS: HEART RATE (beats per minute): 125 bpm AMNIOTIC FLUID INDEX (cm) = 9.2 PRESENTATION: Cephalic. ADDITIONAL FINDINGS: None. IMPRESSION: Viable IUP with heart rate of 125 bpm and normal BOY. Signer Name: Alexandra Bal MD Signed: 12/20/2019 6:07 PM Workstation Name: [id number]
[2019-12-21 08:23] VITALS: BP 103/52
[2019-12-21] MEDS: cefTRIAXone/NS 1 GM/50 ML 1 GM/50 ML BAG IV SCH (09:06)
--- NOTE | 2019-12-21 09:45 | Discharge Summary ---
Providers - Providers Date of Admission: 12/19/19 22:32 Attending physician: ZEKE CARRILLO MD 12/20/19 06:00 Consult to Physician [CONS] Routine Comment: Consulting Provider: EVARISTO PAZ Physician Instructions: Reason For Exam: STROKE LIKE SYMPTOMS WITH SPEECH IMPAIRMENT Speech Therapy Evaluation and Treat [CONS] Routine Reason For Exam: SPPECH IMPAIRMENT Primary care physician: VIKKI AARON Hospitalization Reason for admission: Altered mental status Condition: Serious Hospital course: patient is a 24-year-old lady, who was brought from the labor and delivery to the emergency room because of difficulty with speech, altered mental status, numbness of both upper extremity and weakness of the right upper extremity. Patient symptoms started some hours prior to presentation to the emergency room, there was history of associated headache but there was no history of fever, shortness of breath, chest pain, or cough Patient was triaged and admitted to the hospitalist service for possible CVA. Imaging studies of the brain was unremarkable for acute stroke except for noted pituitary enlargement. Outpatient follow-up studies recommended for the patient. With CT contrast dedicated pituitary study. She however was noted to have a UTI and will be started on empiric antibiotic and discharged home to follow-up with her CHECK EMBOSSER. Nursing staff will contact CHECK EMBOSSER for clearance for discharge per their documentation. Discussed with patient today she is compliant with her medications including her enoxaparin at home. We will give a dose prior to discharge. She is also clear about her follow-up with her CHECK EMBOSSER and OB. No respiratory symptoms no slurred speech no generalized weakness educated her about the E. coli and antibiotics that has been prescribed and ordered. She has no fever. D-dimer was also checked and was normal (1) Acute Cystitis secondary to E. coli (2) Acute metabolic Encephalopathy (3) Generalied weakness ( 4) 36 weeks IUP (5) enlarged pituitary gland Disposition: - TO HOME OR SELFCARE Time spent for discharge: 35 minutes Core Measure Documentation - Palliative Care Palliative Care/ Comfort Measures: Not Applicable - Core Measures Any of the following diagnoses?: none Exam - Physical Exam Narrative exam: VITAL SIGNS: Reviewed. GENERAL: The patient appears normally developed, Vital signs as documented. HEAD: No signs of head trauma. EYES: Pupils are equal. Extraocular motions intact. EARS: Hearing grossly intact. MOUTH: Oropharynx is normal. NECK: No adenopathy, no JVD. CHEST: Chest with clear breath sounds bilaterally. No wheezes, rales, or rhonchi. CARDIAC: Regular rate and rhythm. S1 and S2, without murmurs, gallops, or rubs. VASCULAR: No Edema. Peripheral pulses normal and equal in all extremities. ABDOMEN: Soft, gravidnon tender and non distended. No rebound or guarding, and no masses palpated. Bowel Sounds normal. MUSCULOSKELETAL: Good range of motion of all major joints. Extremities without clubbing, cyanosis or edema. NEUROLOGIC EXAM: Alert and oriented x 3 No focal sensory or strength deficits. Speech normal. Follows commands. PSYCHIATRIC: Mood normal. SKIN: detail exam as documented in skin assessment - Constitutional Vitals: Temp Pulse Resp BP Pulse Ox 97.6 F 92 H 18 103/52 99 12/21/19 08:21 12/21/19 08:21 12/21/19 08:21 12/21/19 08:21 12/21/19 08:21 Plan Activity: advance as tolerated, fall precautions Diet: low fat Special Instructions: record daily weights, record daily BP diary Care Plan Goals: Patient transferred to ED. Unable to sign, altered mentation. Suspected stroke. ED automatic door mechanic accepted report and patient. Follow up with: TAVARES WINSTON JR, MD [Staff Physician] - 7 Days VIKKI AARON MD [Primary Care Provider] - 7 Days
[2019-12-21] MEDS ORDERED: ENOXAPARIN SODIUM SQ SCH (10:00)
[2019-12-21] MEDS ORDERED: ENOXAPARIN 100 MG/1 ML INJ SUB-Q SCH (11:00)
== END 2019-12-21 13:00 | disposition home or self-care (01) ==
LOC: ED 16:44 → TRG 16:44 → APU 16:46 → TRG 16:46 → EDSTATUS 20:49 → ED 22:32 → 4A 22:32
PROVIDERS: ADMIT Internal Medicine; ATTEND Internal Medicine
DX: O23.13 Infections of bladder in pregnancy, third trimester (principal); B96.20 Unspecified Escherichia coli [E. coli] as the cause of diseases classified elsewhere; O99.353 Diseases of the nervous system complicating pregnancy, third trimester; G93.41 Metabolic encephalopathy; O26.893 Other specified pregnancy related conditions, third trimester; R41.82 Altered mental status, unspecified; R51 Headache; R47.9 Unspecified speech disturbances; Z86.718 Personal history of other venous thrombosis and embolism; Z3A.36 36 weeks gestation of pregnancy
CPT/HCPCS: 36415; 70450; 70496; 70498; 70551; 76815; 76819; 80053; 80307; 81001; 82550; 82553; 82962; 84484; 85025; 85379; 85610; 85730; 86850; 86900; 86901; 87076; 87086; 87186; 92610; 93005; 93306; 93880; 96365; 96366; 96372; 99291; G0378; J0696; J1650; Q9967